=== PATIENT | male | born 1995 ===

== ENCOUNTER 2023-12-07 08:44 | Outpatient (CLI) | payer BC, SELFPAY | END 2023-12-07 08:45 | disposition home or self-care (01) | PROVIDERS: PCP Family Medicine; Visit Provider Family Medicine | DX: Z00.00 Encounter for general adult medical examination without abnormal findings (principal); Z13.1 Encounter for screening for diabetes mellitus; Z13.6 Encounter for screening for cardiovascular disorders | CPT/HCPCS: 80053; 80061 ==

== ENCOUNTER 2025-01-05 13:12 | Outpatient (CLI) | payer BC, SELFPAY | END 2025-01-05 13:13 | disposition home or self-care (01) | PROVIDERS: PCP Family Medicine; Visit Provider Family Medicine | DX: E78.1 Pure hyperglyceridemia (principal) | CPT/HCPCS: 80053; 80061 ==